=== PATIENT | female | born 1975 | race Caucasian/White ===

== ENCOUNTER → 2023-04-20 | Outpatient (CLI) | payer MEDICAID ==
[2023-04-20 10:46] LABS: BASO % 0.5 % (0.0-1.0); EOS # 0.2 10*3/uL (0.0-0.4); EOS % 3.9 % (1.0-4.0); HEMATOCRIT 40.9 % (37.0-47.0); LYMPH # 1.6 10*3/uL (1.3-4.4); LYMPH % 27.5 % (27.0-41.0); MEAN CELL VOLUME 94.5 fl (81.0-99.0); MEAN CORPUSCULAR HGB 30.7 pg (27.0-31.0); MEAN CORPUSCULAR HGB CONC 32.5 g/dl (33.0-37.0); MEAN PLATELET VOLUME 9.8 fl (9.6-12.3); MONO # 0.5 10*3/uL (0.1-1.0); NEUT # 3.5 10*3/uL (2.3-7.9); NEUT % 59.1 % (47.0-73.0); PLATELET COUNT AUTOMATED 240 10*3/uL (130-400); RED BLOOD COUNT 4.33 10*6/uL (4.10-5.10); RED CELL DISTRI WIDTH 12.5 % (0-14.5); WHITE BLOOD COUNT 5.9 10*3/uL (4.8-10.8)
[2023-04-20 11:11] LABS: ALKALINE PHOSPHATASE 67 U/L (46-116); BUN 10 mg/dl (9-23); CHLORIDE 107 mmol/L (98-107); CHOLESTEROL 231 mg/dL (<200); LDL CHOLESTEROL 140 mg/dL (9-159); POTASSIUM 3.9 mmol/L (3.4-5.1); SGPT/ALT 28 U/L (5-49)
[2023-04-21 05:06] LABS: HBSAG Negative (Negative); HEP B CORE AB, IGM Negative (Negative)
[2023-04-24 17:06] LABS: HCV LOG10 7.009 (.); HCV RT-PCR RFX See Final Results IU/mL (.); HEPATITIS C ANTIBODY Reactive (Non Reactive)
== END | disposition home or self-care (01) ==
LOC: LAB 09:11
PROVIDERS: ATTEND Registered Nurse
DX: Z11.59 Encounter for screening for other viral diseases (principal); Z13.1 Encounter for screening for diabetes mellitus; Z13.220 Encounter for screening for lipoid disorders; F11.99 Opioid use, unspecified with unspecified opioid-induced disorder; Z91.410 Personal history of adult physical and sexual abuse